=== PATIENT | male | born 1990 | race Caucasian/White ===

== ENCOUNTER 2019-08-04 22:21 | Emergency (ER) | payer BC ==
[~2019-08-04] VITALS: Ht 172.7 cm; Wt 108.9 kg
[2019-08-04 22:25] VITALS: BP 106/66
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
--- NOTE | 2019-08-04 23:09 | NUR ---
Patient discharged with v/s stable. Written and verbal after care instructions given and explained. Patient verbalized understanding. Ambulatory with in custody W/[facility]. All questions addressed prior to discharge. Advised to follow up with PMD.
[2019-08-04 23:11] VITALS: BP 124/62
== END 2019-08-04 23:11 ==
LOC: MED 22:21
DX: Z04.1 Encounter for examination and observation following transport accident (principal)
CPT/HCPCS: 99283